=== PATIENT | male | born 1950 | race African-American/Black ===

== ENCOUNTER 2022-11-18 06:02 | Inpatient (IN) ==
[2022-11-18] MEDS ORDERED: METOPROLOL TARTRATE 5 MG/5 ML VIAL IV STA (06:15)
[2022-11-18] MEDS ORDERED: ASPIRIN CHEW 81 MG TABLET PO STA (06:15)
[2022-11-18] MEDS ORDERED: FUROSEMIDE 40 MG/4 ML VIAL IV STA (06:42)
[2022-11-18 06:47] LABS: Alanine Aminotransferase 38 U/L (16-61); Albumin 2.7 G/DL (3.4-5.0); Alkaline Phosphatase 85 U/L (45-117); Aspartate Amino Transferase 28 U/L (0-37); Bilirubin,Total < 0.39 MG/DL (0.20-1.00); Blood Urea Nitrogen 21 MG/DL (7-18); Calcium 8.6 MG/DL (8.5-10.1); Carbon Dioxide 26 MMOL/L (21-32); Chloride 106 MMOL/L (98-107); Glucose 123 MG/DL (74-106); Osmolality,Calculated 284.3 MOS/KG (273-304); Potassium 3.8 MMOL/L (3.5-5.1); Sodium 141 MMOL/L (136-145); Total Protein 8.7 G/DL (6.4-8.2)
[2022-11-18] MEDS ORDERED: SODIUM CHLORIDE 0.9% 500 ML IV STA (06:59)
[2022-11-18 07:18] LABS: Basophils % 0.2 % (0.0-0.8); Eosinophils % 0.1 % (0.00-10.9); Hematocrit 36.6 VOL% (42.0-52.0); Immature Granulocytes % 0.5 %; Immature Granulocytes Absolute 0.04 #; Lymphocytes # 1.2 10*3/uL (1.4-4.0); Lymphocytes % 14.1 % (21.2-54.2); Mean Corpuscular HGB Conc 28.4 GM/DL (32-36); Mean Corpuscular Volume 94.3 FL (87-102); Mean Platelet Volume 10.5 FL (9.6-12.0); Monocytes # 0.8 10*3/uL (0.11-0.8); Monocytes % 9.5 % (1.7-12.7); Neutrophils % 75.6 % (38.7-73.9); Platelet Count 457 T/CUMM (130-400); Red Blood Count 3.88 MC/CUMM (3.8-5.5); Red Cell Distribution Width 14.6 % (9.3-17.3); White Blood Count 8.8 T/CUMM (4-12)
[2022-11-18 07:26] LABS: Hemoglobin 10.4 GM/DL (14.0-18.0)
[2022-11-18 07:28] LABS: Risk Ratio 2.98; VLDL Cholesterol 18.4 MG/DL
[2022-11-18 07:32] LABS: Anisocytosis 1+; Band Neutrophils 1 % (0-10); Lymphocytes 14 % (20-55); Platelet Estimate Normal; Total Cells Counted 100
[2022-11-18] MEDS ORDERED: SIMETHICONE CHEW 125 MG TABLET PO PRN (08:44)
[2022-11-18] MEDS ORDERED: ONDANSETRON 4 MG/2 ML VIAL IV PRN (08:44)
[2022-11-18] MEDS ORDERED: lisinopriL 10 MG TABLET PO SCH (09:00)
[2022-11-18] MEDS ORDERED: LEVOFLOXACIN INJ 500 MG/100 ML PREMIX IV STA (09:21)
[2022-11-18] MEDS: PANTOPRAZOLE 40 MG TABLET PO SCH (10:11)
[2022-11-18] MEDS: ENOXAPARIN 40 MG/0.4 ML SYRINGE SUBCUT SCH (10:14)
[2022-11-18 10:18] LABS: % Iron Saturation 33.8 % (18-50); Ferritin 1870.2 ng/mL (26-388)
[2022-11-18] MEDS: LOSARTAN 25 MG TABLET PO SCH (11:09)
[2022-11-18] MEDS: hydrALAZINE 20 MG/1 ML VIAL IV PRN (12:42)
[2022-11-18] MEDS: ALBUTEROL 2.5 MG/3 ML NEB RESP TX SCH ×2 (14:18→18:46)
[2022-11-18] MEDS ORDERED: FUROSEMIDE 40 MG/4 ML VIAL IV SCH (16:00)
[2022-11-19] MEDS: ALBUTEROL 2.5 MG/3 ML NEB RESP TX SCH ×4 (01:23→19:20)
[2022-11-19 05:11] LABS: Basophils % 0.2 % (0.0-0.8); Hematocrit 29.4 VOL% (42.0-52.0); Immature Granulocytes % 0.3 %; Immature Granulocytes Absolute 0.02 #; Lymphocytes # 1.5 10*3/uL (1.4-4.0); Lymphocytes % 24.1 % (21.2-54.2); Mean Corpuscular HGB Conc 30.6 GM/DL (32-36); Mean Corpuscular Volume 89.1 FL (87-102); Mean Platelet Volume 10.1 FL (9.6-12.0); Monocytes % 16.5 % (1.7-12.7); Neutrophils % 58.9 % (38.7-73.9); Platelet Count 388 T/CUMM (130-400); Red Cell Distribution Width 14.9 % (9.3-17.3); White Blood Count 6.1 T/CUMM (4-12)
[2022-11-19 05:46] LABS: Hypochromia Slight; Lymphocytes 28 % (20-55); Microcytosis 1+; Total Cells Counted 100
[2022-11-19 05:47] LABS: Ovalocytes Slight
[2022-11-19 05:49] LABS: Albumin 2.3 G/DL (3.4-5.0); Bilirubin,Total 0.5 MG/DL (0.20-1.00); Calcium 8.7 MG/DL (8.5-10.1); Osmolality,Calculated 275.8 MOS/KG (273-304); Potassium 3.3 MMOL/L (3.5-5.1); Thyroid Stimulating Hormone 0.975 uIU/ml (0.358-3.74); Total Protein 8.5 G/DL (6.4-8.2)
[2022-11-19] MEDS ORDERED: diphenhydrAMINE CAP 25 MG CAPSULE PO ONE (07:47)
[2022-11-19] MEDS ORDERED: ASPIRIN 325 MG TABLET PO ONE (07:47)
[2022-11-19] MEDS ORDERED: POTASSIUM CHLORIDE RIDER 10 MEQ/100 ML PREMIX IV PRN (07:47)
[2022-11-19] MEDS ORDERED: DIAZEPAM 5 MG TABLET PO ONE (07:47)
[2022-11-19] MEDS ORDERED: HEPARIN/NACL 0.9% 2 UNITS/ML 2,000 UNIT/1,000 ML BAG IV ONE (08:35)
[2022-11-19] MEDS: SODIUM CHLORIDE 0.45% 1,000 ML IV SCH ×3 (08:54→22:23)
[2022-11-19] MEDS: LOSARTAN 25 MG TABLET PO SCH ×2 (08:55→10:43)
[2022-11-19] MEDS ORDERED: fentaNYL 100 MCG/2 ML VIAL ONE (09:13)
[2022-11-19] MEDS ORDERED: MIDAZOLAM 2 MG/2 ML VIAL ONE (09:13)
[2022-11-19] MEDS ORDERED: METOPROLOL TARTRATE 5 MG/5 ML VIAL IV ONE (09:35)
[2022-11-19] MEDS: ENOXAPARIN 40 MG/0.4 ML SYRINGE SUBCUT SCH (09:52)
[2022-11-19] MEDS ORDERED: ASPIRIN 325 MG TABLET ONE (09:55)
[2022-11-19 10:35] LABS: Total Protein (Chem) 9.3 G/DL (6.4-8.3)
[2022-11-19 10:41] LABS: Albumin (SPE) 3.8 G/DL (3.2-5.3); Albumin (SPE) Rel % 41.3 %; Alpha 1 (SPE) 0.3 G/DL (0.1-0.4); Alpha 1 (SPE) Rel % 3.2 %; Alpha 2 (SPE) 0.9 G/DL (0.4-1.0); Alpha 2 (SPE) Rel % 9.3 %; Beta (SPE) 0.8 G/DL (0.5-1.1); Beta (SPE) Rel % 8.8 %; Gamma (SPE) Rel % 37.4 %
[2022-11-19] MEDS: carvediloL 3.125 MG TABLET PO SCH ×2 (10:44→20:21)
[2022-11-19] MEDS: PANTOPRAZOLE 40 MG TABLET PO SCH (10:44)
[2022-11-19 10:49] LABS: Gamma (SPE) 3.5 G/DL (0.7-1.7)
[2022-11-19] MEDS: POTASSIUM CHLORIDE 20 MEQ TABLET PO PRN (14:48)
[2022-11-20] MEDS: ALBUTEROL 2.5 MG/3 ML NEB RESP TX SCH ×4 (00:35→19:35)
[2022-11-20 04:42] LABS: Basophils % 0.2 % (0.0-0.8); Hematocrit 29.3 VOL% (42.0-52.0); Hemoglobin 8.6 GM/DL (14.0-18.0); Immature Granulocytes % 0.6 %; Immature Granulocytes Absolute 0.03 #; Lymphocytes # 1.1 10*3/uL (1.4-4.0); Lymphocytes % 24.2 % (21.2-54.2); Mean Corpuscular HGB Conc 29.4 GM/DL (32-36); Mean Platelet Volume 9.4 FL (9.6-12.0); Monocytes # 0.7 10*3/uL (0.11-0.8); Monocytes % 15.3 % (1.7-12.7); Neutrophils % 59.7 % (38.7-73.9); Platelet Count 351 T/CUMM (130-400); Red Blood Count 3.22 MC/CUMM (3.8-5.5); Red Cell Distribution Width 15.4 % (9.3-17.3); White Blood Count 4.7 T/CUMM (4-12)
[2022-11-20 05:04] LABS: Calcium 8.4 MG/DL (8.5-10.1); Osmolality,Calculated 276.7 MOS/KG (273-304); Potassium 3.9 MMOL/L (3.5-5.1)
[2022-11-20] MEDS ORDERED: FUROSEMIDE 20 MG TABLET PO SCH (09:00)
[2022-11-20] MEDS: SODIUM CHLORIDE 0.45% 1,000 ML IV SCH (09:21)
[2022-11-20] MEDS: POTASSIUM CHLORIDE 20 MEQ TABLET PO PRN (09:28)
[2022-11-20] MEDS: LOSARTAN 25 MG TABLET PO SCH (09:28)
[2022-11-20] MEDS: ENOXAPARIN 40 MG/0.4 ML SYRINGE SUBCUT SCH (09:29)
[2022-11-20] MEDS: carvediloL 3.125 MG TABLET PO SCH ×2 (09:29→22:21)
[2022-11-20] MEDS: PANTOPRAZOLE 40 MG TABLET PO SCH (09:29)
[2022-11-20 11:56] LABS: Immunoglobulin A 118 MG/DL (70-400); Immunoglobulin G 3400 MG/DL (700-1600); Immunoglobulin M < 21 MG/DL (40-230)
[2022-11-20] MEDS ORDERED: FUROSEMIDE 20 MG TABLET PO ONE (12:37)
[2022-11-20] MEDS: SPIRONOLACTONE 25 MG TABLET PO SCH (13:14)
[2022-11-20] MEDS: DOCUSATE SODIUM 100 MG CAPSULE PO PRN (19:34)
[2022-11-21] MEDS: ALBUTEROL 2.5 MG/3 ML NEB RESP TX SCH ×4 (00:44→19:09)
[2022-11-21] MEDS: carvediloL 3.125 MG TABLET PO SCH ×2 (09:10→20:06)
[2022-11-21] MEDS: LOSARTAN 25 MG TABLET PO SCH (09:10)
[2022-11-21] MEDS: SPIRONOLACTONE 25 MG TABLET PO SCH (09:11)
[2022-11-21] MEDS: FUROSEMIDE 40 MG TABLET PO SCH (09:11)
[2022-11-21] MEDS: PANTOPRAZOLE 40 MG TABLET PO SCH (09:11)
[2022-11-21] MEDS: ENOXAPARIN 40 MG/0.4 ML SYRINGE SUBCUT SCH (09:11)
[2022-11-21] MEDS: DOCUSATE SODIUM 100 MG CAPSULE PO PRN (09:11)
[2022-11-21 10:32] LABS: Hematocrit 31.9 VOL% (42.0-52.0); Hemoglobin 9.5 GM/DL (14.0-18.0)
[2022-11-21] MEDS ORDERED: FUROSEMIDE 40 MG/4 ML VIAL IV ONE (13:49)
[2022-11-22] MEDS: ALBUTEROL 2.5 MG/3 ML NEB RESP TX SCH ×4 (00:04→17:54)
[2022-11-22] MEDS: ACETAMINOPHEN 325 MG TABLET PO PRN ×2 (04:20→09:41)
[2022-11-22 05:08] LABS: Calcium 8.4 MG/DL (8.5-10.1); Osmolality,Calculated 274.2 MOS/KG (273-304); Potassium 3.9 MMOL/L (3.5-5.1)
[2022-11-22] MEDS ORDERED: FUROSEMIDE 40 MG/4 ML VIAL IV ONE (07:00)
[2022-11-22] MEDS: ENOXAPARIN 40 MG/0.4 ML SYRINGE SUBCUT SCH (09:30)
[2022-11-22] MEDS: carvediloL 3.125 MG TABLET PO SCH ×2 (09:31→21:07)
[2022-11-22] MEDS: SPIRONOLACTONE 25 MG TABLET PO SCH (09:31)
[2022-11-22] MEDS: POTASSIUM CHLORIDE 20 MEQ TABLET PO PRN (09:31)
[2022-11-22] MEDS: PANTOPRAZOLE 40 MG TABLET PO SCH (09:31)
[2022-11-22] MEDS: LOSARTAN 25 MG TABLET PO SCH (09:32)
[2022-11-22] MEDS: DOCUSATE SODIUM 100 MG CAPSULE PO PRN (09:32)
[2022-11-22] MEDS ORDERED: POLYETHYLENE GLYCOL POWDER 17 GM PACK PO PRN (10:15)
[2022-11-22] MEDS: FUROSEMIDE 40 MG TABLET PO SCH (15:40)
[2022-11-22] MEDS ORDERED: FUROSEMIDE 40 MG TABLET PO SCH (21:00)
[2022-11-23] MEDS: ALBUTEROL 2.5 MG/3 ML NEB RESP TX SCH ×4 (00:26→19:20)
[2022-11-23 04:59] LABS: Basophils % 0.2 % (0.0-0.8); Hematocrit 27.8 VOL% (42.0-52.0); Hemoglobin 8.6 GM/DL (14.0-18.0); Immature Granulocytes % 0.5 %; Immature Granulocytes Absolute 0.03 #; Lymphocytes # 1.2 10*3/uL (1.4-4.0); Mean Corpuscular HGB Conc 30.9 GM/DL (32-36); Mean Corpuscular Volume 88.5 FL (87-102); Mean Platelet Volume 10.2 FL (9.6-12.0); Monocytes # 1.1 10*3/uL (0.11-0.8); Monocytes % 17.6 % (1.7-12.7); Neutrophils % 62.7 % (38.7-73.9); Platelet Count 433 T/CUMM (130-400); Red Blood Count 3.14 MC/CUMM (3.8-5.5); Red Cell Distribution Width 15.4 % (9.3-17.3); White Blood Count 6.3 T/CUMM (4-12)
[2022-11-23 05:23] LABS: Lymphocytes 14 % (20-55); Total Cells Counted 100
[2022-11-23 05:24] LABS: Hypochromia Slight; Microcytosis Slight
[2022-11-23 05:27] LABS: Calcium 8.6 MG/DL (8.5-10.1); Osmolality,Calculated 275.4 MOS/KG (273-304); Potassium 4.3 MMOL/L (3.5-5.1)
[2022-11-23 09:46] LABS: PT Patient Result 10.8 SECS (10.1-12.1); Partial Thromboplastin Time 31.5 SECS (23.7-32.9)
[2022-11-23] MEDS: PANTOPRAZOLE 40 MG TABLET PO SCH (09:48)
[2022-11-23] MEDS: carvediloL 3.125 MG TABLET PO SCH ×3 (09:49→20:52)
[2022-11-23] MEDS: SPIRONOLACTONE 25 MG TABLET PO SCH (09:50)
[2022-11-23] MEDS: LOSARTAN 25 MG TABLET PO SCH (09:54)
[2022-11-23] MEDS: ENOXAPARIN 40 MG/0.4 ML SYRINGE SUBCUT SCH (09:55)
[2022-11-23 16:46] LABS: Glucose,Pleural Fluid 96 MG/DL; LDH,Body Fluid 1037 U/L
[2022-11-23 17:13] LABS: Lymphocytes,Pleural Fluid 24 %; Monocytes,Pleural Fluid 15 %; Neutrophils,Pleural Fluid 61 %
[2022-11-23 17:14] LABS: RBC,Pleural Fluid 294 T/CUMM
[2022-11-23] MEDS: MORPHINE 2 MG/1 ML SYRINGE IV PRN (20:47)
[2022-11-24] MEDS: ALBUTEROL 2.5 MG/3 ML NEB RESP TX SCH ×4 (00:45→19:56)
[2022-11-24 07:15] LABS: Arterial Base Excess iSTAT 1 MMOL/L (-2.5-2.5); Arterial Bicarbonate iSTAT 24.3 MMOL/L (20-26); Arterial O2 Saturation iSTAT 91 % (95-100); Arterial PCO2 iSTAT 34 MM HG (35-48); Arterial PO2 iSTAT 57 MM HG (80-95); Arterial Total CO2 iSTAT 25 MMO/L (23-27); Arterial pH iSTAT 7.459 (7.35-7.45)
[2022-11-24 07:24] LABS: Basophils % 0.1 % (0.0-0.8); Hematocrit 28.4 VOL% (42.0-52.0); Hemoglobin 8.7 GM/DL (14.0-18.0); Immature Granulocytes % 0.9 %; Immature Granulocytes Absolute 0.07 #; Lymphocytes # 0.9 10*3/uL (1.4-4.0); Lymphocytes % 12.5 % (21.2-54.2); Mean Corpuscular HGB Conc 30.6 GM/DL (32-36); Mean Corpuscular Volume 87.1 FL (87-102); Mean Platelet Volume 9.8 FL (9.6-12.0); Monocytes % 13.8 % (1.7-12.7); Neutrophils % 72.7 % (38.7-73.9); Platelet Count 450 T/CUMM (130-400); Red Blood Count 3.26 MC/CUMM (3.8-5.5); Red Cell Distribution Width 15.9 % (9.3-17.3); White Blood Count 7.4 T/CUMM (4-12)
[2022-11-24 07:46] LABS: Lactic Acid 0.9 MMOL/L (0.4-2.0)
[2022-11-24] MEDS ORDERED: FUROSEMIDE 40 MG/4 ML VIAL IV ONE (07:53)
[2022-11-24 07:56] LABS: Albumin 2.3 G/DL (3.4-5.0); Bilirubin,Total 0.9 MG/DL (0.20-1.00); Calcium 8.5 MG/DL (8.5-10.1); Potassium 4.6 MMOL/L (3.5-5.1); Total Protein 8.6 G/DL (6.4-8.2)
[2022-11-24] MEDS: MORPHINE 2 MG/1 ML SYRINGE IV PRN (08:06)
[2022-11-24] MEDS: METOPROLOL TARTRATE 5 MG/5 ML VIAL IV PRN ×2 (08:09→20:07)
[2022-11-24] MEDS: HYDROCORTISONE 100 MG VIAL IV SCH ×3 (08:12→19:32)
[2022-11-24] MEDS: LEVOFLOXACIN INJ 750 MG/150 ML PREMIX IV SCH (08:12)
[2022-11-24] MEDS: ENOXAPARIN 40 MG/0.4 ML SYRINGE SUBCUT SCH (09:05)
[2022-11-24] MEDS: carvediloL 3.125 MG TABLET PO SCH ×2 (10:42→20:07)
[2022-11-24] MEDS: LOSARTAN 25 MG TABLET PO SCH (10:43)
[2022-11-24] MEDS: PANTOPRAZOLE 40 MG TABLET PO SCH (10:43)
[2022-11-24] MEDS: AMPICILLIN/SULBACTAM 3,000 MG in SODIUM CHLORIDE 0.9% 100 ML IV SCH ×2 (12:20→19:34)
[2022-11-24] MEDS ORDERED: DIGOXIN 0.5 MG/2 ML AMP IV ONE (12:45)
[2022-11-24 13:08] LABS: Albumin 2.1 G/DL (3.4-5.0); Bilirubin,Total 0.8 MG/DL (0.20-1.00); Osmolality,Calculated 289.8 MOS/KG (273-304); Potassium 4.4 MMOL/L (3.5-5.1); Total Protein 9.2 G/DL (6.4-8.2)
[2022-11-24 15:11] LABS: Bacteria,Urine Occasional /HPF (Few); Glucose,Urine (UA) Negative (Negative); Ketones,Urine Negative (Negative); Mucus,Urine Occasional /LPF (Occasional); Nitrite,Urine Negative (Negative); Protein,Urine 100 mg/dL (Negative); RBC,Urine 11 /HPF (0-4); Squamous Epithelial Cell,Urine Occasional /HPF (0-10); Urine Appearance Clear (Clear); Urine Color Yellow (Yellow); Urine Specific Gravity > 1.030 (1.001-1.035)
[2022-11-24 15:12] LABS: Bilirubin,Urine Small mg/dL (Negative); Blood, Urine Large mg/dL (Negative)
[2022-11-25] MEDS: ALBUTEROL 2.5 MG/3 ML NEB RESP TX SCH ×4 (00:12→19:30)
[2022-11-25] MEDS: HYDROCORTISONE 100 MG VIAL IV SCH ×4 (01:43→20:04)
[2022-11-25] MEDS: METOPROLOL TARTRATE 5 MG/5 ML VIAL IV PRN (01:57)
[2022-11-25] MEDS: AMPICILLIN/SULBACTAM 3,000 MG in SODIUM CHLORIDE 0.9% 100 ML IV SCH ×3 (04:03→20:04)
[2022-11-25 04:22] LABS: Basophils % 0.1 % (0.0-0.8); Hematocrit 28.2 VOL% (42.0-52.0); Hemoglobin 8.4 GM/DL (14.0-18.0); Immature Granulocytes % 0.9 %; Immature Granulocytes Absolute 0.08 #; Lymphocytes # 0.9 10*3/uL (1.4-4.0); Lymphocytes % 9.6 % (21.2-54.2); Mean Corpuscular HGB Conc 29.8 GM/DL (32-36); Mean Corpuscular Volume 89.5 FL (87-102); Mean Platelet Volume 9.8 FL (9.6-12.0); Monocytes # 0.9 10*3/uL (0.11-0.8); Monocytes % 9.9 % (1.7-12.7); Neutrophils % 79.5 % (38.7-73.9); Platelet Count 491 T/CUMM (130-400); Red Blood Count 3.15 MC/CUMM (3.8-5.5); White Blood Count 8.8 T/CUMM (4-12)
[2022-11-25 05:53] LABS: Calcium 8.8 MG/DL (8.5-10.1); Osmolality,Calculated 299.4 MOS/KG (273-304); Potassium 4.5 MMOL/L (3.5-5.1)
[2022-11-25] MEDS ORDERED: DILTIAZEM INJ 100 MG in SODIUM CHLORIDE 0.9% 100 ML IV SCH (09:00)
[2022-11-25] MEDS: PANTOPRAZOLE 40 MG TABLET PO SCH (09:36)
[2022-11-25] MEDS: carvediloL 3.125 MG TABLET PO SCH ×2 (09:36→20:03)
[2022-11-25] MEDS: LOSARTAN 25 MG TABLET PO SCH (09:37)
[2022-11-25] MEDS: ENOXAPARIN 40 MG/0.4 ML SYRINGE SUBCUT SCH (09:37)
[2022-11-25 17:56] LABS: Kappa Free Light Chain 3.88 mg/dL; Lambda Free Light Chain 16.5 mg/dL
[2022-11-26] MEDS: ALBUTEROL 2.5 MG/3 ML NEB RESP TX SCH ×4 (00:30→19:25)
[2022-11-26] MEDS: HYDROCORTISONE 100 MG VIAL IV SCH ×2 (01:10→12:36)
[2022-11-26 03:59] LABS: Arterial Base Excess iSTAT 3 MMOL/L (-2.5-2.5); Arterial Bicarbonate iSTAT 27.6 MMOL/L (20-26); Arterial O2 Saturation iSTAT 95 % (95-100); Arterial PCO2 iSTAT 42 MM HG (35-48); Arterial PO2 iSTAT 76 MM HG (80-95); Arterial Total CO2 iSTAT 29 MMO/L (23-27); Arterial pH iSTAT 7.428 (7.35-7.45)
[2022-11-26] MEDS: AMPICILLIN/SULBACTAM 3,000 MG in SODIUM CHLORIDE 0.9% 100 ML IV SCH ×3 (04:00→20:04)
[2022-11-26 04:14] LABS: Hemoglobin 8.2 GM/DL (14.0-18.0); Immature Granulocytes % 0.8 %; Immature Granulocytes Absolute 0.07 #; Lymphocytes # 0.8 10*3/uL (1.4-4.0); Lymphocytes % 9.3 % (21.2-54.2); Mean Corpuscular HGB Conc 30.4 GM/DL (32-36); Mean Corpuscular Volume 88.2 FL (87-102); Mean Platelet Volume 9.7 FL (9.6-12.0); Monocytes # 0.8 10*3/uL (0.11-0.8); Monocytes % 8.8 % (1.7-12.7); Neutrophils % 81.1 % (38.7-73.9); Platelet Count 511 T/CUMM (130-400); Red Blood Count 3.06 MC/CUMM (3.8-5.5); Red Cell Distribution Width 15.9 % (9.3-17.3); White Blood Count 8.7 T/CUMM (4-12)
[2022-11-26 04:35] LABS: Osmolality,Calculated 302.4 MOS/KG (273-304); Potassium 4.1 MMOL/L (3.5-5.1)
[2022-11-26] MEDS: ENOXAPARIN 40 MG/0.4 ML SYRINGE SUBCUT SCH (08:27)
[2022-11-26] MEDS: carvediloL 3.125 MG TABLET PO SCH ×2 (08:27→20:01)
[2022-11-26] MEDS: LOSARTAN 25 MG TABLET PO SCH (08:27)
[2022-11-26] MEDS: PANTOPRAZOLE 40 MG TABLET PO SCH (08:27)
[2022-11-26] MEDS: LEVOFLOXACIN INJ 750 MG/150 ML PREMIX IV SCH (08:28)
[2022-11-26] MEDS ORDERED: HEPARIN 5,000 UNIT/1 ML VIAL ONE (09:58)
[2022-11-26] MEDS: hydrALAZINE 20 MG/1 ML VIAL IV PRN (22:13)
[2022-11-27] MEDS: ALBUTEROL 2.5 MG/3 ML NEB RESP TX SCH ×4 (00:30→19:13)
[2022-11-27] MEDS: HYDROCORTISONE 100 MG VIAL IV SCH ×2 (01:57→13:04)
[2022-11-27] MEDS ORDERED: FUROSEMIDE 40 MG/4 ML VIAL IV ONE (02:06)
[2022-11-27] MEDS: AMPICILLIN/SULBACTAM 3,000 MG in SODIUM CHLORIDE 0.9% 100 ML IV SCH ×2 (03:29→13:18)
[2022-11-27 05:04] LABS: Hematocrit 31.8 VOL% (42.0-52.0); Hemoglobin 9.6 GM/DL (14.0-18.0); Immature Granulocytes % 1.7 %; Immature Granulocytes Absolute 0.13 #; Lymphocytes # 0.9 10*3/uL (1.4-4.0); Lymphocytes % 11.8 % (21.2-54.2); Mean Corpuscular HGB Conc 30.2 GM/DL (32-36); Mean Corpuscular Volume 89.3 FL (87-102); Mean Platelet Volume 9.9 FL (9.6-12.0); Monocytes # 0.6 10*3/uL (0.11-0.8); Monocytes % 8.3 % (1.7-12.7); Neutrophils % 78.2 % (38.7-73.9); Platelet Count 607 T/CUMM (130-400); Red Blood Count 3.56 MC/CUMM (3.8-5.5); Red Cell Distribution Width 15.4 % (9.3-17.3); White Blood Count 7.4 T/CUMM (4-12)
[2022-11-27 05:20] LABS: Calcium 8.9 MG/DL (8.5-10.1); Osmolality,Calculated 295.3 MOS/KG (273-304); Potassium 3.6 MMOL/L (3.5-5.1)
[2022-11-27] MEDS: POTASSIUM CHLORIDE 20 MEQ TABLET PO PRN ×2 (06:27→08:51)
[2022-11-27] MEDS: ENOXAPARIN 40 MG/0.4 ML SYRINGE SUBCUT SCH (08:50)
[2022-11-27] MEDS: LOSARTAN 50 MG TABLET PO SCH (08:51)
[2022-11-27] MEDS: carvediloL 12.5 MG TABLET PO SCH ×2 (08:51→23:17)
[2022-11-27] MEDS: PANTOPRAZOLE 40 MG TABLET PO SCH (08:51)
[2022-11-27] MEDS: hydrALAZINE 20 MG/1 ML VIAL IV PRN (23:20)
[2022-11-28] MEDS: ALBUTEROL 2.5 MG/3 ML NEB RESP TX SCH ×4 (00:09→19:23)
[2022-11-28] MEDS: HYDROCORTISONE 100 MG VIAL IV SCH ×4 (04:35→20:29)
[2022-11-28 04:46] LABS: Hematocrit 29.8 VOL% (42.0-52.0); Hemoglobin 8.6 GM/DL (14.0-18.0); Immature Granulocytes % 1.1 %; Immature Granulocytes Absolute 0.07 #; Lymphocytes # 1.8 10*3/uL (1.4-4.0); Lymphocytes % 27.7 % (21.2-54.2); Mean Corpuscular HGB Conc 28.9 GM/DL (32-36); Mean Corpuscular Volume 89.5 FL (87-102); Mean Platelet Volume 9.8 FL (9.6-12.0); Monocytes # 0.8 10*3/uL (0.11-0.8); Monocytes % 11.4 % (1.7-12.7); Neutrophils % 59.8 % (38.7-73.9); Platelet Count 607 T/CUMM (130-400); Red Blood Count 3.33 MC/CUMM (3.8-5.5); Red Cell Distribution Width 15.7 % (9.3-17.3); White Blood Count 6.6 T/CUMM (4-12)
[2022-11-28 05:01] LABS: Calcium 8.9 MG/DL (8.5-10.1); Osmolality,Calculated 290.3 MOS/KG (273-304); Potassium 3.7 MMOL/L (3.5-5.1)
[2022-11-28 05:09] LABS: Hypochromia Slight; Platelet Estimate Increased
[2022-11-28] MEDS: LOSARTAN 50 MG TABLET PO SCH (08:00)
[2022-11-28] MEDS: LEVOFLOXACIN INJ 750 MG/150 ML PREMIX IV SCH (08:00)
[2022-11-28] MEDS: ENOXAPARIN 40 MG/0.4 ML SYRINGE SUBCUT SCH (08:00)
[2022-11-28] MEDS: PANTOPRAZOLE 40 MG TABLET PO SCH (08:00)
[2022-11-28] MEDS: carvediloL 12.5 MG TABLET PO SCH ×2 (08:00→20:17)
[2022-11-28] MEDS: ASCORBIC ACID 500 MG TABLET PO SCH ×2 (12:03→20:16)
[2022-11-28] MEDS ORDERED: ALUM/MAG/SIMETH/LIDO VISC 1:1 30 ML BOTTLE PO ONE (12:45)
[2022-11-28] MEDS ORDERED: POTASSIUM CHLORIDE 20 MEQ TABLET PO ONE (13:08)
[2022-11-28] MEDS: ASPIRIN EC 81 MG TABLET PO SCH (13:52)
[2022-11-28] MEDS ORDERED: MORPHINE 2 MG/1 ML SYRINGE IV PRN (17:59)
[2022-11-28 22:52] LABS: M. Tuberculosis PCR Result Negative (Negative)
[2022-11-29] MEDS: ALBUTEROL 2.5 MG/3 ML NEB RESP TX SCH ×4 (00:59→20:23)
[2022-11-29 05:25] LABS: Basophils % 0.1 % (0.0-0.8); Hematocrit 29.1 VOL% (42.0-52.0); Hemoglobin 8.5 GM/DL (14.0-18.0); Immature Granulocytes % 1.1 %; Immature Granulocytes Absolute 0.13 #; Lymphocytes # 1.4 10*3/uL (1.4-4.0); Lymphocytes % 11.2 % (21.2-54.2); Mean Corpuscular HGB Conc 29.2 GM/DL (32-36); Mean Corpuscular Volume 88.4 FL (87-102); Mean Platelet Volume 9.6 FL (9.6-12.0); Monocytes # 1.6 10*3/uL (0.11-0.8); Monocytes % 13.2 % (1.7-12.7); Neutrophils % 74.4 % (38.7-73.9); Platelet Count 663 T/CUMM (130-400); Red Blood Count 3.29 MC/CUMM (3.8-5.5); Red Cell Distribution Width 15.9 % (9.3-17.3); White Blood Count 12.33 T/CUMM (4-12)
[2022-11-29 06:01] LABS: Calcium 9.2 MG/DL (8.5-10.1); Osmolality,Calculated 287.7 MOS/KG (273-304); Potassium 4.6 MMOL/L (3.5-5.1)
[2022-11-29] MEDS: HYDROCORTISONE 100 MG VIAL IV SCH ×2 (08:48→20:16)
[2022-11-29] MEDS: ENOXAPARIN 40 MG/0.4 ML SYRINGE SUBCUT SCH (08:50)
[2022-11-29] MEDS: PANTOPRAZOLE 40 MG TABLET PO SCH (08:51)
[2022-11-29] MEDS: LOSARTAN 50 MG TABLET PO SCH (08:51)
[2022-11-29] MEDS: ASCORBIC ACID 500 MG TABLET PO SCH ×2 (08:51→20:17)
[2022-11-29] MEDS: carvediloL 12.5 MG TABLET PO SCH ×2 (08:51→20:17)
[2022-11-29] MEDS: ASPIRIN EC 81 MG TABLET PO SCH (08:51)
[2022-11-29] MEDS ORDERED: AMIODARONE INJ 450 MG in DEXTROSE 5% 241 ML IV SCH ×2 (12:30→18:30)
[2022-11-29] MEDS: ENOXAPARIN 80 MG/0.8 ML SYRINGE SUBCUT SCH (16:04)
[2022-11-30] MEDS: ALBUTEROL 2.5 MG/3 ML NEB RESP TX SCH ×4 (00:30→19:12)
[2022-11-30] MEDS: ENOXAPARIN 80 MG/0.8 ML SYRINGE SUBCUT SCH ×2 (03:58→19:55)
[2022-11-30 05:16] LABS: Eosinophils % 0.2 % (0.00-10.9); Hematocrit 26.8 VOL% (42.0-52.0); Immature Granulocytes % 1.7 %; Immature Granulocytes Absolute 0.17 #; Lymphocytes # 1.5 10*3/uL (1.4-4.0); Mean Corpuscular HGB Conc 29.9 GM/DL (32-36); Mean Corpuscular Volume 87.3 FL (87-102); Mean Platelet Volume 9.8 FL (9.6-12.0); Monocytes # 1.3 10*3/uL (0.11-0.8); Monocytes % 12.6 % (1.7-12.7); Neutrophils % 70.5 % (38.7-73.9); Platelet Count 634 T/CUMM (130-400); Red Blood Count 3.07 MC/CUMM (3.8-5.5); Red Cell Distribution Width 16.2 % (9.3-17.3); White Blood Count 10.19 T/CUMM (4-12)
[2022-11-30 05:58] LABS: Calcium 8.8 MG/DL (8.5-10.1); Osmolality,Calculated 285.7 MOS/KG (273-304)
[2022-11-30 09:41] LABS: Arterial Base Excess iSTAT 2 MMOL/L (-2.5-2.5); Arterial Bicarbonate iSTAT 25.3 MMOL/L (20-26); Arterial O2 Saturation iSTAT 97 % (95-100); Arterial PCO2 iSTAT 34 MM HG (35-48); Arterial PO2 iSTAT 87 MM HG (80-95); Arterial Total CO2 iSTAT 26 MMO/L (23-27); Arterial pH iSTAT 7.484 (7.35-7.45)
[2022-11-30] MEDS: LEVOFLOXACIN INJ 750 MG/150 ML PREMIX IV SCH (09:41)
[2022-11-30] MEDS: carvediloL 12.5 MG TABLET PO SCH (09:41)
[2022-11-30] MEDS: ASPIRIN EC 81 MG TABLET PO SCH (09:41)
[2022-11-30] MEDS: ASCORBIC ACID 500 MG TABLET PO SCH ×2 (09:41→21:10)
[2022-11-30] MEDS: DOCUSATE SODIUM 100 MG CAPSULE PO PRN (09:41)
[2022-11-30] MEDS: LOSARTAN 50 MG TABLET PO SCH (09:41)
[2022-11-30] MEDS: PANTOPRAZOLE 40 MG TABLET PO SCH (09:41)
[2022-11-30] MEDS: HYDROCORTISONE 100 MG VIAL IV SCH ×2 (10:07→20:47)
[2022-11-30] MEDS: SOTALOL 80 MG TABLET PO SCH (21:10)
[2022-12-01] MEDS: ALBUTEROL 2.5 MG/3 ML NEB RESP TX SCH ×4 (00:25→19:10)
[2022-12-01] MEDS: ENOXAPARIN 80 MG/0.8 ML SYRINGE SUBCUT SCH ×2 (04:17→18:38)
[2022-12-01 05:19] LABS: Basophils % 0.1 % (0.0-0.8); Eosinophils % 0.3 % (0.00-10.9); Hematocrit 28.1 VOL% (42.0-52.0); Hemoglobin 8.2 GM/DL (14.0-18.0); Immature Granulocytes % 2.4 %; Immature Granulocytes Absolute 0.19 #; Lymphocytes # 1.2 10*3/uL (1.4-4.0); Lymphocytes % 15.8 % (21.2-54.2); Mean Corpuscular HGB Conc 29.2 GM/DL (32-36); Mean Corpuscular Volume 88.6 FL (87-102); Mean Platelet Volume 9.4 FL (9.6-12.0); Monocytes # 0.8 10*3/uL (0.11-0.8); Monocytes % 10.2 % (1.7-12.7); Neutrophils % 71.2 % (38.7-73.9); Platelet Count 635 T/CUMM (130-400); Red Blood Count 3.17 MC/CUMM (3.8-5.5); Red Cell Distribution Width 16.1 % (9.3-17.3); White Blood Count 7.84 T/CUMM (4-12)
[2022-12-01 05:47] LABS: Calcium 8.4 MG/DL (8.5-10.1); Osmolality,Calculated 287.4 MOS/KG (273-304); Potassium 4.1 MMOL/L (3.5-5.1)
[2022-12-01] MEDS: PANTOPRAZOLE 40 MG TABLET PO SCH (08:40)
[2022-12-01] MEDS: ASCORBIC ACID 500 MG TABLET PO SCH ×2 (08:40→20:51)
[2022-12-01] MEDS: SOTALOL 80 MG TABLET PO SCH ×2 (08:40→20:51)
[2022-12-01] MEDS: HYDROCORTISONE 100 MG VIAL IV SCH ×2 (08:40→21:22)
[2022-12-01] MEDS: ASPIRIN EC 81 MG TABLET PO SCH (08:40)
[2022-12-01] MEDS: LOSARTAN 50 MG TABLET PO SCH (08:40)
[2022-12-01] MEDS: ACETAMINOPHEN 325 MG TABLET PO PRN (20:51)
[2022-12-02] MEDS: ALBUTEROL 2.5 MG/3 ML NEB RESP TX SCH ×2 (01:13→07:10)
[2022-12-02] MEDS: ENOXAPARIN 80 MG/0.8 ML SYRINGE SUBCUT SCH (05:27)
[2022-12-02 05:32] LABS: Calcium 8.3 MG/DL (8.5-10.1); Osmolality,Calculated 282.4 MOS/KG (273-304); Potassium 4.4 MMOL/L (3.5-5.1)
[2022-12-02 08:04] VITALS: BP 124/88
[2022-12-02] MEDS: SOTALOL 80 MG TABLET PO SCH (09:11)
[2022-12-02] MEDS: HYDROCORTISONE 100 MG VIAL IV SCH (09:11)
[2022-12-02] MEDS: ASPIRIN EC 81 MG TABLET PO SCH (09:11)
[2022-12-02] MEDS: PANTOPRAZOLE 40 MG TABLET PO SCH (09:12)
[2022-12-02] MEDS: ASCORBIC ACID 500 MG TABLET PO SCH (09:12)
[2022-12-02] MEDS: LOSARTAN 50 MG TABLET PO SCH (09:12)
== END 2022-12-02 11:50 | disposition home or self-care (01) | DRG 987 ==
LOC: N.ED 06:02 → N.TELES 12:55 → SUATTDRO 13:09 → N.TELES 13:09 → N.CC 11-24 07:21 → N.TELES 11-28 11:29
PROVIDERS: ADMIT Emergency Medicine; ATTEND Hospitalist